=== PATIENT | male | born 1930 | race Caucasian/White ===

== ENCOUNTER 2017-03-24 06:54 | Day surgery (SDC) | payer MEDICARE ==
[2017-03-24] MEDS ORDERED: NALOXONE HCL INJ/PF 0.4 MG/1 ML SDV ONE (07:21)
[2017-03-24] MEDS ORDERED: ONDANSETRON HCL INJ/PF 4 MG/2 ML SDV ONE (07:21)
[2017-03-24] MEDS ORDERED: GLYCOPYRROLATE INJ 0.4 MG/2 ML VIAL ONE (07:21)
[2017-03-24] MEDS ORDERED: GLUCAGON,HUMAN RECOMB 1 MG INJ ONE (07:22)
[2017-03-24] MEDS ORDERED: FLUMAZENIL INJ 0.5 MG/5 ML VIAL IV ONE (07:22)
[2017-03-24] MEDS ORDERED: EPINEPHRINE INJ 1 MG/10 ML DISP.SYRIN ONE (07:22)
[2017-03-24] MEDS: MIDAZOLAM 2 MG/2 ML INJ ONE ×3 (07:54→08:26)
[2017-03-24] MEDS: FENTANYL CITRATE INJ/PF 100 MCG/2 ML AMPUL ONE ×2 (07:56→08:00)
--- NOTE | 2017-03-24 09:38 | PDOC DISCHARGE SUMMARY ---
Discharge Summary (SDC) - Discharge Final Diagnosis: Multiple colon polyps Date of Surgery: 03/24/17 Discharge Date: 03/24/17 Condition: Good Forms: Sedation D/C Instructions, Discharge POC-Surgical Service Treatment or Instructions: [address] [address] POST ENDOSCOPY DISCHARGE INSTRUCTIONS 1. Diet: Start clear liquids that a regular diet as tolerated. 2. Resume all preoperative medications. All oral anticoagulants and aspirins can be resumed 24 hours after procedure. 3. If a polypectomy was performed some bleeding per rectum may occur. This should stop within 3 days. If not, please contact the office. 4. If you had a colonoscopy you may experience some bloating and delayed return of normal bowel function for several days, your regular bowel movement pattern should resume within a week. 5. Please contact [facility] at to make an appointment with Dr. Villarreal for 1 to 3 weeks following procedure. 6. If you have any questions or concerns regarding your care,treatment plan or follow up, please contact our office. 7. Per clinical guidelines we recommend you undergo a repeat colonoscopy in 3 years or sooner pending pathology report .FOLLOW UP APPT.ON 04/07/17 AT 1PM Discharge Diet: As Tolerated Discharge Activity: Activity As Tolerated Home Care Assistance: None Needed Report the Following to Your Physician Immediately: Shortness of Breath, Increase in Pain, Fever over 101 Degrees
--- NOTE | 2017-03-24 09:58 | OPERATIVE REPORT E ---
Operative Report NAME: SEAMUS INIGUEZ : 1930 AGE: 86Y DATE OF SURGERY: 03/24/2017 ROOM: PREOPERATIVE DIAGNOSES: 1. Status post sigmoid colectomy, colostomy for complicated diverticular disease. 2. Multiple colonic polyps at the ostomy site. POSTOPERATIVE DIAGNOSES: 1. Multiple small polys of the transverse colon. 2. Mucosal mass at approximately 35 cm from ostomy. 3. Retained fecal matter in rectal stump. 4. Mild diversion proctitis. 5. Residual colonic diverticula. PROCEDURES: 1. Colonoscopy to cecum via descending colostomy. 2. Multiple polypectomies of transverse colon. 3. Mucosal biopsy of mucosal mass at 35 cm from colostomy site. 4. Endoscopic evaluation of rectal stump. SURGEON: CRISTIN PEREIRA M.D. SUMMARY OF PROCEDURE: Patient brought from the preop holding area to the main endoscopy suite [facility] where monitoring devices were attached. Conscious sedation was induced. Surgical plan and surgical time-out were conducted. Again, the patient was in the supine position, arms to his side. Ostomy bag opened, and ostomy visualized. There was no obvious bleeding or residual polyps status post polypectomy 1 week ago at [facility]. Digital inspection of the colostomy revealed no obstruction. The flexible pediatric colonoscope was advanced through the colostomy to the cecum. This was a reasonably well prepped bowel. Transillumination of the anterior abdominal wall, and visualization of cecal anatomy confirmed cecal intubation. Scope was withdrawn the length of the colon checking the mucosa carefully. There was no evidence of tumor, stricture, or bleeding. In the transverse colon, there were multiple small sessile polyps which were retrieved with the cold forceps device and labeled as transverse colon polyp. The bleeding was minimal. Approximately 35 cm from the ostomy was a somewhat irregular generous mucosal fullness, which appeared to be different from the surrounding mucosa, and so a biopsy was performed of it. It was fairly focal, noncircumferential. Photos were taken. The remainder of the colon was unremarkable, except for residual left-sided diverticula. We then rolled the patient in the left lateral decubitus position right side up. A rectal exam was performed. The anal canal was somewhat stenotic due to disuse. I was able to advance the index finger through the sphincter. I could feel retained fecal matter from 10 years ago. We then inserted the pediatric colonoscope through the anal canal up to the transected end of the rectal stump, which was approximately 25 cm from the anal verge. Again, other than retained fecal matter, and some mild diversion proctitis, there was no endoluminal pathology. The scope was withdrawn from the patient's anus. Tolerated procedure well. Per surveillance guidelines, pending final path report, the patient will be at least due for a followup colonoscopy in 3 years, possibly sooner. DICTATING PHYSICIAN: CRISTIN PEREIRA M.D. [id number] PHY#: [id number] ID: [id number] JOB#: [id number] ACCT: [id number] cc:CRISTIN PEREIRA M.D. >
[2017-03-24 10:00] VITALS: BP 189/67
== END 2017-03-24 10:20 | disposition home or self-care (01) ==
LOC: END 06:54
PROVIDERS: ATTEND Surgery
PROC: 0DBL8ZX Excision of Transverse Colon, Via Natural or Artificial Opening Endoscopic, Diagnostic (ICD-10-PCS; principal; 2017-03-24 07:30)
DX: D12.3 Benign neoplasm of transverse colon (principal); K57.30 Diverticulosis of large intestine without perforation or abscess without bleeding; K62.89 Other specified diseases of anus and rectum; Z90.49 Acquired absence of other specified parts of digestive tract; Z93.3 Colostomy status; K92.2 Gastrointestinal hemorrhage, unspecified; Z88.0 Allergy status to penicillin; Z88.1 Allergy status to other antibiotic agents; E78.00 Pure hypercholesterolemia, unspecified; I10 Essential (primary) hypertension; N42.9 Disorder of prostate, unspecified; K21.9 Gastro-esophageal reflux disease without esophagitis; E11.9 Type 2 diabetes mellitus without complications; Z83.71 Family history of colonic polyps; Z79.899 Other long term (current) drug therapy; Z79.82 Long term (current) use of aspirin; Z79.4 Long term (current) use of insulin
CPT/HCPCS: 44389; 46600; 82962; 88305 ×2; J2250; J3010; J0171; J1610; J2310; J2405; J3490

== ENCOUNTER 2019-02-28 11:20 | Emergency (ER) | payer OTHER, MEDICARE ==
--- NOTE | 2019-02-28 11:39 | ER Document Report ---
ED Medical Screen (RME) - General Chief Complaint: Loose Stools Stated Complaint: INCONTINENCE Time Seen by Provider: 02/28/19 11:33 Primary Care Provider: CRISTIN PEREIRA MD [Primary Care Provider] - Follow up as needed Mode of Arrival: Wheelchair Information source: Patient Notes: Patient presents emergency department with his daughter for complaints that he has a colostomy for the past 8 years and recently he started producing stool from his rectum. He denies all other symptoms such as fever vomiting diarrhea. He denies abdominal pain. Reports the colostomy is not producing as much stool as normal. Patient is a diabetic. I have greeted and performed a rapid initial assessment of this patient. A comprehensive ED assessment and evaluation of the patient, analysis of test results and completion of the medical decision making process will be conducted by additional ED providers. Dictation of this chart was performed using voice recognition software; therefore, there may be some unintended grammatical errors. TRAVEL OUTSIDE OF THE [place] IN LAST 30 DAYS: No - Related Data Allergies/Adverse Reactions: amoxicillin Allergy (Intermediate, Verified 02/28/19 11:21) Generalized rash levofloxacin Allergy (Intermediate, Verified 02/28/19 11:21) Generalized rash Penicillins Allergy (Intermediate, Verified 02/28/19 11:21) Generalized rash Past Medical History - Social History Chew tobacco use (# tins/day): No Frequency of alcohol use: None Drug Abuse: None - Past Medical History Cardiac Medical History: Reports: Hx Coronary Artery Disease - HIGH CHOLESTEROL , Hx Hypertension Denies: Hx Heart Attack Pulmonary Medical History: Denies: Hx Asthma - SEASONAL ALLERGIES , Hx Bronchitis, Hx COPD, Hx Pneumonia Neurological Medical History: Denies: Hx Cerebrovascular Accident, Hx Seizures Endocrine Medical History: Reports: Hx Diabetes Mellitus Type 2 Renal/ Medical History: Denies: Hx Peritoneal Dialysis Musculoskeltal Medical History: Denies Hx Arthritis Past Surgical History: Reports: Hx Abdominal Surgery - colostomy - Immunizations Hx Diphtheria, Pertussis, Tetanus Vaccination: Yes Physical Exam - Vital signs Vitals: Temp Pulse Resp BP Pulse Ox 97.5 F 78 20 145/55 H 98 02/28/19 11:27 02/28/19 11:27 02/28/19 11:27 02/28/19 11:27 02/28/19 11:27 Course - Vital Signs Vital signs: Temp Pulse Resp BP Pulse Ox 97.5 F 78 20 145/55 H 98 02/28/19 11:27 02/28/19 11:27 02/28/19 11:27 02/28/19 11:27 02/28/19 11:27 Doctor's Discharge - Discharge Referrals: CRISTIN PEREIRA MD [Primary Care Provider] - Follow up as needed
[2019-02-28 11:52] LABS: ABSOLUTE BASOPHILS # (AUTO) 0.1 10^3/uL (0.0-0.2); ABSOLUTE EOSINOPHILS # (AUTO) 0.4 10^3/uL (0.0-0.6); ABSOLUTE LYMPHOCYTES (AUTO) 1.4 10^3/uL (0.5-4.7); ABSOLUTE MONOCYTES (AUTO) 0.7 10^3/uL (0.1-1.4); ABSOLUTE NEUT (AUTO) 5.8 10^3/uL (1.7-8.2); BASOPHILS % (AUTO) 0.6 % (0-2); EOSINOPHILS % (AUTO) 5.2 % (0-6); HEMATOCRIT 36.5 % (37.9-51.0); HEMOGLOBIN 12.1 g/dL (13.5-17.0); LYMPHOCYTES % (AUTO) 16.7 % (13-45); MEAN CORPUSCULAR HEMOGLOBIN 28.7 pg (27.0-33.4); MEAN CORPUSCULAR HGB CONC 33.1 g/dL (32.0-36.0); MEAN CORPUSCULAR VOLUME 87 fl (80-97); MONOCYTES % (AUTO) 8.1 % (3-13); PLATELET COUNT 299 10^3/uL (150-450); RED BLOOD COUNT 4.22 10^6/uL (4.35-5.55); RED CELL DISTRIBUTION WIDTH 14.7 % (11.5-14.0); SEGMENTED NEUTROPHILS % (AUTO) 69.4 % (42-78); TOTAL CELLS COUNTED % (AUTO) 100 %; WHITE BLOOD COUNT 8.4 10^3/uL (4.0-10.5)
[2019-02-28 12:12] LABS: ALANINE AMINOTRANSFERASE 37 U/L (21-72); ALKALINE PHOSPHATASE 76 U/L (38-126); ANION GAP 11 (5-19); ASPARTATE AMINO TRANSFERASE 28 U/L (17-59); BILIRUBIN,DIRECT 0.2 mg/dL (0.0-0.4); BILIRUBIN,TOTAL 0.4 mg/dL (0.2-1.3); BLOOD UREA NITROGEN 59 mg/dL (7-20); CALCIUM 9.4 mg/dL (8.4-10.2); CARBON DIOXIDE 26 mmol/L (22-30); CHLORIDE 106 mmol/L (98-107); GLUCOSE 177 mg/dL (75-110); POTASSIUM 5.1 mmol/L (3.6-5.0); SODIUM 143.2 mmol/L (137-145); TOTAL PROTEIN 6.9 g/dL (6.3-8.2)
--- NOTE | 2019-02-28 14:26 | RADIOLOGY REPORT (SQ) ---
EXAM DESCRIPTION: CT ABD/PELVIS ORAL ONLY COMPLETED DATE/TIME: 02/28/2019 2:07 pm REASON FOR STUDY: hx colostomy, now stool from rectum COMPARISON: None. TECHNIQUE: CT scan of the abdomen and pelvis performed without intravenous contrast. Patient was gi mila oral contrast. Images reviewed with lung, soft tissue, and bone windows. Reconstructed coronal a nd sagittal MPR images reviewed. All images stored on PACS. All CT scanners at this facility use dose modulation, iterative reconstruction, and/or weight based d osing when appropriate to reduce radiation dose to as low as reasonably achievable (ALARA). [facility]: Dose Right [facility]: CareDose [facility]: Dose Right [facility]: Teradose 4D [facility]: Smart [employer] RADIATION DOSE: CT Rad equipment meets quality standard of care and radiation dose reduction techniq ues were employed. CTDIvol: 14.4 mGy. DLP: 802 mGy-cm.mGy. LIMITATIONS: None. FINDINGS: LOWER CHEST: No evidence of acute process. Scattered coronary atherosclerosis. NON-CONTRASTED LIVER, SPLEEN, ADRENALS: Evaluation limited by lack of IV contrast. No identified sign ificant masses. PANCREAS: No masses. No peripancreatic inflammatory changes. GALLBLADDER: Cholelithiasis. No evidence gallbladder inflammation. RIGHT KIDNEY AND URETER: No suspicious masses. Assessment limited by lack of IV contrast. Subcentime ter exophytic cyst. No significant calcifications. No hydronephrosis or hydroureter. LEFT KIDNEY AND URETER: Ill-defined fat containing exophytic lesion along the upper pole measuring ap proximately 3.3 x 2.3 cm (series 3, image 36) most compatible with angiomyolipoma. 20 mm lower pole cyst. No significant calcifications. No hydronephrosis or hydroureter. AORTA AND RETROPERITONEUM: Aortoiliac atherosclerosis. No aneurysm. BOWEL AND PERITONEAL CAVITY: No evidence of left cathy colectomy with left lower quadrant ostomy. The re is a small bowel containing left parastomal hernia. No evidence of intestinal obstruction. Resid ual high density stool within Renay's pouch. Scattered colonic diverticula. APPENDIX: Surgically absent. PELVIS, BLADDER, AND ABDOMINAL WALL:Prostatomegaly measuring 6.3 cm transversely. Left lower quadran t colostomy with a small bowel containing peristomal hernia. Left inguinal fat containing hernia. BONES: Mild T12 compression deformity and superior endplate irregularity with approximately 20% heigh t loss. No acute bony abnormality. No suspicious osseous lesions. OTHER: No other significant finding. IMPRESSION: 1. Status post colectomy with left lower quadrant ostomy and small bowel containing lef t parastomal hernia. No evidence of obstruction. Residual stool within Renay's pouch. 2. Cholelithiasis. 3. Exophytic 3.3 x 2.4 cm left renal lesion containing fat most compatible with angiomyolipoma. 4. Prostatomegaly. 5. Mild T12 compression deformity and superior endplate irregularity, likely chronic. Recommend cor relation with patient symptoms. COMMENT: Quality ID # [id number]: Final reports with documentation of one or more dose reduction techniques (e.g., Automated exposure control, adjustment of the mA and/or kV according to patient size, use of iterative reconstruction technique) TECHNICAL DOCUMENTATION: JOB ID: [id number] [employer]- All Rights Reserved Reading location - IP/workstation name: [email or web address]
--- NOTE | 2019-02-28 15:03 | ER Document Report ---
ED GI/ - General Chief Complaint: Loose Stools Stated Complaint: INCONTINENCE Time Seen by Provider: 02/28/19 11:33 Primary Care Provider: [facility] [Provider Group] - Follow up as needed CRISTIN VILLARREAL MD [ACTIVE STAFF] - Follow up as needed Mode of Arrival: Wheelchair Information source: Patient Notes: Patient has a history of a colostomy performed 8 years ago. Patient states yesterday that he had 2 or 3 episodes in which he had stool from his rectum. Patient states he has never had anything come from his rectum since having his colostomy. Patient denies any recent illness, fever, abdominal pain, rectal pain or any other symptoms. TRAVEL OUTSIDE OF THE [place] IN LAST 30 DAYS: No - HPI Patient complains to provider of: No: Abdominal pain Onset: Yesterday Timing/Duration: Sudden Quality of pain: No pain Pain Level: Denies Associated symptoms: denies: Blood in emesis, Blood in stool, Chest pain, Chills, Urinary hesitancy, Urinary frequency, Urinary retention, Urinary urgency, Vomiting Exacerbated by: Denies Relieved by: Denies Similar symptoms previously: No Recently seen / treated by doctor: No - Related Data Allergies/Adverse Reactions: amoxicillin Allergy (Intermediate, Verified 02/28/19 11:21) Generalized rash levofloxacin Allergy (Intermediate, Verified 02/28/19 11:21) Generalized rash Penicillins Allergy (Intermediate, Verified 02/28/19 11:21) Generalized rash Past Medical History - General Information source: Patient - Social History Smoking Status: Never Smoker Chew tobacco use (# tins/day): No Frequency of alcohol use: None Drug Abuse: None Lives with: Family Family History: Reviewed & Not Pertinent Patient has suicidal ideation: No Patient has homicidal ideation: No - Past Medical History Cardiac Medical History: Reports: Hx Coronary Artery Disease - HIGH CHOLESTEROL , Hx Hypertension Denies: Hx Heart Attack Pulmonary Medical History: Denies: Hx Asthma - SEASONAL ALLERGIES , Hx Bronchitis, Hx COPD, Hx Pneumonia Neurological Medical History: Denies: Hx Cerebrovascular Accident, Hx Seizures Endocrine Medical History: Reports: Hx Diabetes Mellitus Type 2 Renal/ Medical History: Denies: Hx Peritoneal Dialysis GI Medical History: Reports: Hx Diverticulitis Musculoskeletal Medical History: Denies Hx Arthritis Past Surgical History: Reports: Hx Abdominal Surgery - colostomy, Hx Appendectomy, Hx Bowel Surgery, Hx Orthopedic Surgery - Immunizations Hx Diphtheria, Pertussis, Tetanus Vaccination: Yes Hx Pneumococcal Vaccination: 10/17/15 Review of Systems - Review of Systems Constitutional: No symptoms reported. denies: Fever, Recent illness EENT: No symptoms reported Cardiovascular: No symptoms reported. denies: Chest pain Respiratory: No symptoms reported. denies: Cough, Short of breath Gastrointestinal: Other - Stool from his rectum. denies: Abdominal pain, Diarrhea, Nausea, Vomiting, Black stools, Rectal bleeding Genitourinary: No symptoms reported Male Genitourinary: No symptoms reported Musculoskeletal: No symptoms reported. denies: Back pain Skin: No symptoms reported Hematologic/Lymphatic: No symptoms reported Neurological/Psychological: No symptoms reported Physical Exam - Vital signs Vitals: Temp Pulse Resp BP Pulse Ox 97.5 F 78 20 145/55 H 98 02/28/19 11:27 02/28/19 11:27 02/28/19 11:27 02/28/19 11:27 02/28/19 11:27 - General General appearance: Appears well, Alert In distress: None - HEENT Head: Normocephalic, Atraumatic Eyes: Normal Conjunctiva: Normal Nasal: Normal Mouth/Lips: Normal Mucous membranes: Normal Neck: Normal, Supple. No: Lymphadenopathy - Respiratory Respiratory status: No respiratory distress Chest status: Nontender Breath sounds: Normal. No: Rales, Rhonchi, Stridor, Wheezing Chest palpation: Normal - Cardiovascular Rhythm: Regular Heart sounds: S1 appreciated, S2 appreciated - Abdominal Inspection: Other - colostomy Distension: No distension Bowel sounds: Normal Tenderness: Nontender - Rectal Notes: no visible stool seepage, no abscess - Back Back: Normal, Nontender. No: CVA tenderness - Extremities General upper extremity: Normal inspection, Normal ROM General lower extremity: Normal inspection, Normal ROM - Neurological Neuro grossly intact: Yes Cognition: Normal Tasley Coma Scale Eye Opening: Spontaneous Tasley Coma Scale Verbal: Oriented Tasley Coma Scale Motor: Obeys Commands Tasley Coma Scale Total: 15 - Psychological Associated symptoms: Normal affect, Normal mood - Skin Skin Temperature: Warm Skin Moisture: Dry Skin Color: Normal Course - Re-evaluation Re-evalutation: 02/28/19 15:[address] Rodriguez regarding patient CT report. Recommends consultation with surgeon at this time. Attempted to get up with patient's surgeon Dr. Villarreal although Dr. Villarreal is not presently sterilization specialist and is not currently in the office. Did speak with Dr. Galarza regarding patient's presentation and did discuss patient's CT report findings. Does not recommend any additional testing, advises outpatient follow-up with primary doctor or surgeon for recheck as needed. 02/28/19 15:03 Patient does have incidental findings on CT scan for cholelithiasis as well as a left renal lesion and enlarged prostate and mild T12 compression deformity. Patient was given a copy of his CT scan report and encouraged to follow-up with his primary doctor for further evaluation, and referral as needed. Patient presently denies any symptoms or complaints at this time. Patient otherwise stable for discharge. - Vital Signs Vital signs: Temp Pulse Resp BP Pulse Ox 98.0 F 73 20 136/63 H 100 02/28/19 15:59 02/28/19 15:59 02/28/19 15:59 02/28/19 15:59 02/28/19 15:59 - Laboratory Result Diagrams: 02/28/19 11:43 02/28/19 11:43 Laboratory results interpreted by me: 02/28/19 02/28/19 11:43 11:43 RBC 4.22 L Hgb 12.1 L Hct 36.5 L RDW 14.7 H Potassium 5.1 H BUN 59 H Creatinine 1.54 H Est GFR ( Amer) 52 L Est GFR (Non-Af Amer) 43 L Glucose 177 H 02/28/19 15:03 Labs- Entire Visit 02/28/19 02/28/19 11:43 11:43 WBC 8.4 RBC 4.22 L Hgb 12.1 L Hct 36.5 L MCV 87 MCH 28.7 MCHC 33.1 RDW 14.7 H Plt Count 299 Seg Neutrophils % 69.4 Lymphocytes % 16.7 Monocytes % 8.1 Eosinophils % 5.2 Basophils % 0.6 Absolute Neutrophils 5.8 Absolute Lymphocytes 1.4 Absolute Monocytes 0.7 Absolute Eosinophils 0.4 Absolute Basophils 0.1 Sodium 143.2 Potassium 5.1 H Chloride 106 Carbon Dioxide 26 Anion Gap 11 BUN 59 H Creatinine 1.54 H Est GFR ( Amer) 52 L Est GFR (Non-Af Amer) 43 L Glucose 177 H Calcium 9.4 Total Bilirubin 0.4 Direct Bilirubin 0.2 Neonat Total Bilirubin Not Reportable Neonat Direct Bilirubin Not Reportable Neonat Indirect Bili Not Reportable AST 28 ALT 37 Alkaline Phosphatase 76 Total Protein 6.9 Albumin 4.0 - Diagnostic Test Radiology reviewed: Reports reviewed Discharge - Discharge Clinical Impression: Rectal discharge, left renal lesion, Enlarged prostate Cholelithiasis Qualifiers: Cholelithiasis location: gallbladder Cholecystitis presence: without cholecystitis Biliary obstruction: without biliary obstruction Qualified Code(s): K80.20 - Calculus of gallbladder without cholecystitis without obstruction Condition: Stable Disposition: HOME, SELF-CARE Additional Instructions: Return immediately for any new or worsening symptoms Followup with your primary care provider, call tomorrow to make a followup appointment Your CT scan today showed incidental gallstones, a left renal lesion, prostate enlargement as well as a mild T12 compression deformity, that appears to be chronic. You can discuss these findings with your primary doctor and they can make referrals as needed. Follow-up with Dr. Villarreal for recheck. Referrals: CRISTIN VILLARREAL MD [ACTIVE STAFF] - Follow up as needed [facility] [Provider Group] - Follow up as needed
[2019-02-28 16:00] VITALS: BP 136/63
== END 2019-02-28 16:01 | disposition home or self-care (01) ==
LOC: ER 11:20
DX: K80.20 Calculus of gallbladder without cholecystitis without obstruction (principal); N40.0 Benign prostatic hyperplasia without lower urinary tract symptoms; N28.9 Disorder of kidney and ureter, unspecified; R19.7 Diarrhea, unspecified; Z93.3 Colostomy status; I25.10 Atherosclerotic heart disease of native coronary artery without angina pectoris; I10 Essential (primary) hypertension; E11.9 Type 2 diabetes mellitus without complications
CPT/HCPCS: 36415; 74176; 80053; 85025; 99284